=== PATIENT | male | born 1960 | race Caucasian/White ===

== ENCOUNTER 2019-05-21 02:55 | Emergency (ER) | payer SELFPAY ==
[~2019-05-21] VITALS: Ht 167.6 cm; Wt 77.1 kg
[2019-05-21 02:57] VITALS: BP 136/86
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
[2019-05-21] MEDS ORDERED: KETOROLAC 60 MG/2 ML VIAL IM ONE (03:15)
[2019-05-21 03:25] VITALS: BP 136/86
--- NOTE | 2019-05-21 03:25 | NUR ---
Patient discharged with v/s stable. Written and verbal after care instructions given and explained. Patient verbalized understanding. Police escort with in custody. All questions addressed prior to discharge. Advised to follow up with PMD.
== END 2019-05-22 03:25 ==
LOC: MED 02:55
DX: K46.9 Unspecified abdominal hernia without obstruction or gangrene (principal)
CPT/HCPCS: 99283; J1885